=== PATIENT | female | born 1990 ===

== ENCOUNTER 2025-03-30 06:00 | Day surgery (SDC) | payer OTHER ==
[2025-03-26 11:41] VITALS: BP 131/90
[~2025-03-30] VITALS: Ht 162.6 cm; Wt 77.1 kg
[~2025-03-30 06:00] MED LIST: AMBIEN10 MG PO; ATIVAN0.5 M1 PO; B12 ACTIVE1000 MCG PO; D3-200050 MCG; ESCITALOPRA5 MG/5 ML PO; VAGINAL CREAM1 EACH MC
[2025-03-30] MEDS ORDERED: METRONIDAZOLE/SODIUM CHLORIDE 500 MG/100 ML PIGGYBACK IV ONE (07:30)
[2025-03-30] MEDS ORDERED: LIDOCAINE HCL 1%/EPINEPHRINE 20ML VIAL IJ ONE (07:30)
[2025-03-30] MEDS ORDERED: BUPIVACAINE HCL 30 ML VIAL IJ SCH (07:30)
[2025-03-30] MEDS ORDERED: CEFTRIAXONE SODIUM 2,000 MG VIAL IV ONE (07:30)
[2025-03-30] MEDS ORDERED: MORPHINE SULFATE 2 MG/ML CARTRIDGE IV ONE (10:30)
== END 2025-03-30 11:40 | disposition home or self-care (01) ==
LOC: CIR.AMB 06:00
PROVIDERS: ATTEND Colon & Rectal Surgery
DX: R15.9 Full incontinence of feces (principal); R32 Unspecified urinary incontinence
CPT/HCPCS: 64581; 95971; C1778

== ENCOUNTER 2025-04-13 06:00 | Day surgery (SDC) | payer OTHER ==
[2025-04-13] MEDS ORDERED: LIDOCAINE HCL 1%/EPINEPHRINE 20ML VIAL IJ ONE (07:17)
[2025-04-13] MEDS ORDERED: BUPIVACAINE HCL/MPF 0.5% 30ML VIAL ONE (07:17)
[2025-04-13] MEDS ORDERED: METRONIDAZOLE/SODIUM CHLORIDE 500 MG/100 ML PIGGYBACK IV ONE (07:20)
[2025-04-13] MEDS ORDERED: CEFTRIAXONE SODIUM 2,000 MG VIAL ONE (07:20)
== END 2025-04-13 13:10 | disposition home or self-care (01) ==
LOC: CIR.AMB 06:00
PROVIDERS: ATTEND Colon & Rectal Surgery
DX: R15.9 Full incontinence of feces (principal); R32 Unspecified urinary incontinence
CPT/HCPCS: 64590; C1767